=== PATIENT | male | born 1995 | race Caucasian/White ===

== ENCOUNTER 2019-04-03 20:36 | Emergency (ER) | payer OTHER ==
[~2019-04-03] VITALS: Ht 167.6 cm; Wt 87.1 kg
[2019-04-03 20:52] VITALS: Ht 167.6 cm; Wt 87.1 kg
[2019-04-03 22:05] VITALS: BP 137/75
== END 2019-04-03 22:05 | disposition home or self-care (01) ==
LOC: ED 20:36
DX: M77.9 Enthesopathy, unspecified (principal)